=== PATIENT | female | born 1960 | race Caucasian/White ===

== ENCOUNTER 2023-04-07 12:18 | Emergency (ER) | payer MEDICAID ==
[~2023-04-07] VITALS: Ht 160 cm; Wt 107.0 kg
[2023-04-07 12:28] VITALS: TEMP 98.2; O2SAT 96
[2023-04-07 12:54] LABS: BASOPHILS % 0.6 % (0.0-2.0); HEMATOCRIT. 36.2 % (36.0-48.0); HEMOGLOBIN. 11.4 g/dL (12.0-16.0); LYMPHOCYTES % 18.3 % (20.0-50.0); MEAN CORPUSCULAR HEMOGLOBIN 25.4 pg (28.0-32.0); MEAN CORPUSCULAR HGB CONC 31.6 g/dL (31.0-37.0); MEAN CORPUSCULAR VOLUME 80.5 fL (81.0-99.0); MEAN PLATELET VOLUME 7.8 fl (7.4-10.4); MONOCYTES % 6.1 % (2.0-8.0); PLATELET 320 x1000/uL (130-400); RED CELL DISTRIBUTION WIDTH 15.7 % (11.6-14.6); WHITE BLOOD COUNT 13.5 x1000/uL (4.5-11.0)
[2023-04-07 13:34] LABS: ALANINE AMINOTRANSFERASE 11 IU/L (10-49); ALBUMIN 4.1 g/dL (3.2-4.8); ASPARTATE AMINOTRANSFERASE 15 IU/L (<34); BILIRUBIN TOTAL 0.5 mg/dL (0.1-1.0); CALCIUM 9.9 mg/dL (8.7-10.4); CARBON DIOXIDE 27 mEq/L (21-32); CHLORIDE 101 mEq/L (98-107); CREATININE 1.2 mg/dL (0.6-1.0); GLUCOSE 255 mg/dL (70-105); POTASSIUM 3.9 mEq/L (3.5-5.1); SODIUM 138 mEq/L (136-145); UREA NITROGEN BLOOD 22 mg/dL (9-23)
[2023-04-07 18:30] VITALS: BP 173/74; PULSE 98; RESP 16
[2023-04-07] MEDS ORDERED: HYDROCODONE/ACETAMINOPHEN 10/325MG TABLET PO ONE (18:30)
== END 2023-04-07 18:46 | disposition home or self-care (01) ==
LOC: ER 13:15
DX: R60.0 Localized edema (principal); I87.2 Venous insufficiency (chronic) (peripheral); E11.9 Type 2 diabetes mellitus without complications; I10 Essential (primary) hypertension; F19.90 Other psychoactive substance use, unspecified, uncomplicated
CPT/HCPCS: 36415; 80053; 85025; 93971; 99284